=== PATIENT | male | born 1980 | race Caucasian/White ===

== ENCOUNTER 2024-04-30 06:08 | Day surgery (SDC) | payer BC, SELFPAY ==
[2024-04-30 06:10] VITALS: BMI 30.1
[2024-04-30 06:20] VITALS: BP 133/86
[2024-04-30 06:33] VITALS: BMI 30.1
[2024-04-30] MEDS: CELEBREX 200 MG PO (06:34)
[2024-04-30] MEDS: TYLENOL 1000 MG PO (06:34)
[2024-04-30 08:50] VITALS: BP 133/86
[2024-04-30 09:45] VITALS: BP 102/63
[2024-04-30 10:15] VITALS: BP 112/73
[2024-04-30 10:45] VITALS: BP 105/57
== END 2024-04-30 12:00 | disposition home or self-care (01) ==
LOC: SDS 06:08
PROVIDERS: ATTENDING PHYSICIAN Orthopaedic Surgery
DX: M19.011 Primary osteoarthritis, right shoulder (principal); M75.111 Incomplete rotator cuff tear or rupture of right shoulder, not specified as traumatic
CPT/HCPCS: 29827; 29828; 29823; C1713